=== PATIENT | female | born 1955 | race Caucasian/White ===

== ENCOUNTER 2017-10-25 06:46 | Day surgery (SDC) | payer OTHER ==
[~2017-10-25] VITALS: Ht 154.9 cm; Wt 65.7 kg
[~2017-10-25 06:46] MED LIST: CALCIUM + D3 E1 EACH PO; CENTRUM SILVER1 EAC3 PO; FLEXERIL10 MG PO; GABAPENTIN100 MG PO; HYDROCODON-ACE1 EAC7 PO; IRON325 M1 PO; LOVENOX40 MG/0.4 SC; MELOXICAM7.5 MG PO; SENNA PLUS TAB1 EACH PO; TYLENOL REGULA325 MG PO
[2017-10-25 07:47] VITALS: BP 121/69
[2017-10-25] MEDS ORDERED: HYDROCODON-ACE1 EAC7 PO (14:33)
[2017-10-25 15:47] VITALS: BP 119/61
[2017-10-25 16:52] VITALS: BP 123/64
[2017-10-25 18:42] VITALS: BP 125/63
== END 2017-10-25 18:48 | disposition home or self-care (01) ==
LOC: SDC 06:46 → NUC 09:00 → SDC 09:00
DX: C50.411 Malignant neoplasm of upper-outer quadrant of right female breast (principal); C77.3 Secondary and unspecified malignant neoplasm of axilla and upper limb lymph nodes; Z17.0 Estrogen receptor positive status [ER+]; Z87.891 Personal history of nicotine dependence
CPT/HCPCS: 78195; 78999; 88305; 88307; A9541; J0131; J0690; J1170; J2250; J2405; J2765; J3010; S0020

== ENCOUNTER 2017-11-08 12:29 | Day surgery (SDC) | payer OTHER ==
[~2017-11-08] VITALS: Ht 154.9 cm; Wt 65.7 kg
[2017-11-08 13:14] VITALS: BP 138/75
[2017-11-08 15:28] VITALS: BP 152/70
[2017-11-08] MEDS ORDERED: HYDROCODON-ACE1 EAC7 PO (15:52)
[2017-11-08 17:24] VITALS: BP 147/71
== END 2017-11-08 17:30 | disposition home or self-care (01) ==
LOC: SDC 12:29
PROC: 0HBT0ZZ Excision of Right Breast, Open Approach (ICD-10-PCS; principal; 2017-11-08)
DX: C50.411 Malignant neoplasm of upper-outer quadrant of right female breast (principal); Z17.0 Estrogen receptor positive status [ER+]; Z87.891 Personal history of nicotine dependence; Z96.649 Presence of unspecified artificial hip joint
CPT/HCPCS: 88305; J0690; J1100; J2405; J3010; Q0175; S0020

== ENCOUNTER 2017-12-07 22:00 | Inpatient (IN) | payer OTHER ==
[~2017-12-07] VITALS: Ht 154.9 cm; Wt 71.2 kg
[2017-12-07 23:01] LABS: HEMATOCRIT 19.8 % (36.0-46.0); HEMOGLOBIN 6.6 G/DL (11.9-15.5); MCHC 33.3 G/DL (30.0-36.0); PLATELET COUNT 152 K/uL (156-360); RBC DIS.WIDTH-CV 12.2 % (11.8-14.6); RBC DIS.WIDTH-SD 40.3 % (39-53); WHITE BLOOD COUNT 8.9 K/uL (4.1-10.2)
[2017-12-07 23:03] LABS: INTER. NORMALIZED RATIO 1.3
[2017-12-07 23:05] LABS: ALBUMIN 2.1 g/dL (3.2-4.8); CHLORIDE 127 mEq/L (99-109); PTT 35.6 SEC (25-37)
[2017-12-07 23:06] LABS: SODIUM 146 mEq/L (136-147)
[2017-12-07 23:08] LABS: GLUCOSE 58 mg/dL (70-99); TOTAL PROTEIN 3.1 g/dL (6.4-8.3)
[2017-12-07 23:10] LABS: TOTAL BILIRUBIN 0.3 mg/dL (0.0-1.0)
[2017-12-07 23:11] LABS: ALKALINE PHOSPHATASE 52 IU/L (3-129); CREATININE 0.3 mg/dL (0.6-1.3); GFR ESTIMATE (CALCULATED) > 59 mL/min/
[2017-12-07] MEDS ORDERED: ESTER-C 1,0001 EACH PO (23:11)
[2017-12-07] MEDS ORDERED: OSTEO BI-FLEX1 EAC1 PO (23:11)
[2017-12-07] MEDS ORDERED: ADULT ASPIRIN R81 MG PO (23:12)
[2017-12-07] MEDS ORDERED: VITAMIN D31000 UNIT PO (23:12)
[2017-12-07 23:13] LABS: AST (GOT) 13 IU/L (2-34); UREA NITROGEN (BUN) 7 mg/dL (9-23)
[2017-12-07 23:14] LABS: ALT (GPT) 13 IU/L (3-49)
[2017-12-07 23:15] LABS: POTASSIUM 1.7 mEq/L (3.7-5.4)
[2017-12-07 23:59] LABS: HEMATOCRIT 36.5 % (36.0-46.0); HEMOGLOBIN 12.5 G/DL (11.9-15.5); MCH 30.4 PG (29.0-34.0); MCHC 34.2 G/DL (30.0-36.0); MCV 88.8 FL (83-99); PLATELET COUNT 290 K/uL (156-360); RBC DIS.WIDTH-CV 12.2 % (11.8-14.6); RBC DIS.WIDTH-SD 39.7 % (39-53); RED BLOOD COUNT 4.11 M/uL (3.80-5.20); WHITE BLOOD COUNT 15.7 K/uL (4.1-10.2)
[2017-12-08 00:06] LABS: CHLORIDE 107 mEq/L (99-109); POTASSIUM 3.9 mEq/L (3.7-5.4); SODIUM 142 mEq/L (136-147)
[2017-12-08 00:09] LABS: GLUCOSE 105 mg/dL (70-99)
[2017-12-08 00:12] LABS: CREATININE 0.7 mg/dL (0.6-1.3); GFR ESTIMATE (CALCULATED) > 59 mL/min/; UREA NITROGEN (BUN) 13 mg/dL (9-23)
[2017-12-08 00:46] VITALS: BP 142/82
[2017-12-08 04:28] VITALS: BP 119/66
[2017-12-08 06:53] LABS: HEMATOCRIT 34.8 % (36.0-46.0); HEMOGLOBIN 11.9 G/DL (11.9-15.5); MCH 30.4 PG (29.0-34.0); MCHC 34.2 G/DL (30.0-36.0); MCV 88.8 FL (83-99); NRBC (%) 0.6 /100 WBC (0-0); PLATELET COUNT 255 K/uL (156-360); RBC DIS.WIDTH-CV 12.6 % (11.8-14.6); RBC DIS.WIDTH-SD 40.5 % (39-53); RED BLOOD COUNT 3.92 M/uL (3.80-5.20)
[2017-12-08 07:16] LABS: CHLORIDE 106 MEQ/L (99-109); CREATININE 0.6 MG/DL (0.6-1.3); GFR ESTIMATE (CALCULATED) > 59 mL/min/; GLUCOSE 123 mg/dL (70-99); POTASSIUM 4.1 MEQ/L (3.7-5.4); SODIUM 139 MEQ/L (136-147); UREA NITROGEN (BUN) 12 mg/dL (9-23)
[2017-12-08 07:33] VITALS: BP 124/69
[2017-12-08 11:58] VITALS: BP 116/59
[2017-12-08 20:37] VITALS: BP 109/56
[2017-12-09 00:29] VITALS: BP 108/63
[2017-12-09 03:37] VITALS: BP 99/57
[2017-12-09 07:07] LABS: HEMATOCRIT 21.1 % (36.0-46.0); MCH 29.8 PG (29.0-34.0); MCHC 33.6 G/DL (30.0-36.0); MCV 88.7 FL (83-99); PLATELET COUNT 188 K/uL (156-360); RBC DIS.WIDTH-CV 12.4 % (11.8-14.6)
[2017-12-09 07:09] LABS: HEMOGLOBIN 7.1 G/DL (11.9-15.5); RED BLOOD COUNT 2.38 M/uL (3.80-5.20)
[2017-12-09 08:38] VITALS: BP 91/53
[2017-12-09] MEDS ORDERED: HYDROCODON-ACE1 EAC7 PO (09:13)
[2017-12-09] MEDS ORDERED: ELIQUIS2.5 MG PO (09:13)
[2017-12-09 11:52] VITALS: BP 110/59
[2017-12-09 15:36] VITALS: BP 116/56
[2017-12-10 00:42] VITALS: BP 109/51
[2017-12-10 05:50] LABS: HEMATOCRIT 21.8 % (36.0-46.0); HEMOGLOBIN 7.3 G/DL (11.9-15.5); MCV 88.3 FL (83-99)
[2017-12-10 08:20] VITALS: BP 118/74
[2017-12-10 08:33] VITALS: BP 145/65
[2017-12-10 12:03] VITALS: BP 113/57
== END 2017-12-10 16:00 | disposition home or self-care (01) | DRG 481 ==
LOC: EME → EDBD 22:00 → EME 22:00 → 3EAST 23:00 → EDOF 23:00 → ENRESERV 23:00 → 3EAST 12-08 00:43
PROVIDERS: Emergency Medicine; Orthopaedic Surgery; Physician Assistant
PROC: 0QS704Z Reposition Left Upper Femur with Internal Fixation Device, Open Approach (ICD-10-PCS; principal; 2017-12-08)
DX: S72.112A Displaced fracture of greater trochanter of left femur, initial encounter for closed fracture (principal); S72.002A Fracture of unspecified part of neck of left femur, initial encounter for closed fracture; V48.4XXA Person boarding or alighting a car injured in noncollision transport accident, initial encounter; D62 Acute posthemorrhagic anemia; C50.911 Malignant neoplasm of unspecified site of right female breast; Z90.11 Acquired absence of right breast and nipple; M19.90 Unspecified osteoarthritis, unspecified site; Z96.641 Presence of right artificial hip joint; Z87.891 Personal history of nicotine dependence
CPT/HCPCS: 71045; 73502; 76000; 80048; 80048 91; 80053; 85014; 85018; 85027; 85610; 85730; 86850; 86900; 86901; 86920; 93005; 97530 GO; 99281; 99285; C1713; J0690; J1100; J1170; J1885; J2250; J2405; J3010; J7030